=== PATIENT | male | born 1990 | race Caucasian/White ===

== ENCOUNTER 2019-12-21 09:10 | Outpatient (NON) | payer OTHER, SELFPAY ==
[2019-12-21 17:35] LABS: SARS-CoV-2 RNA PCR Negative
== END 2019-12-21 09:11 ==
PROVIDERS: PCP Family Medicine; Visit Provider Physician Assistant
DX: Z20.828 Contact with and (suspected) exposure to other viral communicable diseases (principal)
CPT/HCPCS: 87635; C9803; U0003